=== PATIENT | female | born 1995 | race Caucasian/White ===

== ENCOUNTER 2017-03-27 07:06 | Outpatient (CLI) | payer OTHER ==
[2015-04-07 19:04] VITALS: BP 128/82
== END 2017-03-27 07:07 ==
LOC: LAB 07:06
DX: E22.9 Hyperfunction of pituitary gland, unspecified (principal)
CPT/HCPCS: 36415; 84146

== ENCOUNTER → 2017-07-20 | Outpatient (CLI) | payer OTHER ==
[2015-04-07 19:04] VITALS: BP 128/82
[2017-07-20 08:09] LABS: eGFR (African) > 60; eGFR (Non-African) > 60
== END ==
LOC: LAB 07:26
PROVIDERS: ATTEND Internal Medicine Endocrinology, Diabetes & Metabolism
DX: E22.1 Hyperprolactinemia (principal)
CPT/HCPCS: 36415; 80053; 84146

== ENCOUNTER 2017-12-25 09:19 | Outpatient (CLI) | payer OTHER ==
[2015-04-07 19:04] VITALS: BP 128/82
[2017-12-25 10:48] LABS: eGFR (African) > 60; eGFR (Non-African) > 60
== END 2017-12-25 09:20 ==
LOC: LAB 09:19
PROVIDERS: ATTEND Internal Medicine Endocrinology, Diabetes & Metabolism
DX: E22.1 Hyperprolactinemia (principal)
CPT/HCPCS: 36415; 80053; 84146

== ENCOUNTER 2018-05-28 07:26 | Outpatient (CLI) | payer OTHER ==
[2015-04-07 19:04] VITALS: BP 128/82
== END 2018-05-28 07:35 ==
LOC: LAB 07:26
PROVIDERS: ATTEND Internal Medicine Endocrinology, Diabetes & Metabolism
DX: E22.1 Hyperprolactinemia (principal)
CPT/HCPCS: 36415; 84146

== ENCOUNTER 2018-07-30 07:46 | Outpatient (CLI) | payer OTHER ==
[2015-04-07 19:04] VITALS: BP 128/82
== END 2018-07-30 07:47 ==
LOC: LAB 07:46
PROVIDERS: ATTEND Internal Medicine Endocrinology, Diabetes & Metabolism
DX: E22.1 Hyperprolactinemia (principal)
CPT/HCPCS: 36415; 84146